=== PATIENT | female | born 1945 | race Hispanic/Latino ===

== ENCOUNTER → 2024-05-02 | Outpatient (CLI) | payer MEDICARE ==
[~2024-05-02] MED LIST: AMLO-257 PO; ATEN50TA PO; ATOR10 PO; EZET10TA48 PO; LEVO88CA4 PO; LORA-192 PO; LORA0.5T83 PO; MECL-226 PO; OLME-30 PO; PANT40TA54 PO; PROP15DR OU; ZOLP10TA2 PO; [UNRECOGNIZED DRUG - OTHER] OU
== END | disposition home or self-care (01) ==
LOC: SHCH 13:56
PROVIDERS: ATTEND Internal Medicine Cardiovascular Disease
DX: I74.2 Embolism and thrombosis of arteries of the upper extremities (principal)
CPT/HCPCS: 93931